=== PATIENT | male | born 1990 | race Asian ===

== ENCOUNTER 2016-02-28 22:09 | Emergency (ER) | payer OTHER ==
[2016-02-28] MEDS ORDERED: MECLIZINE 12.5 MG TABLET PO STA (23:07)
[2016-02-28] MEDS ORDERED: ONDANSETRON ODT 4 MG TABLET TL STA (23:08)
[2016-02-28] MEDS ORDERED: MECLIZINE 12.5 MG TABLET PO ONE (23:17)
[2016-02-28] MEDS ORDERED: ONDANSETRON ODT 4 MG TABLET ONE (23:17)
[2016-02-29] MEDS ORDERED: MECLIZINE 12.5 MG TABLET PO STA (00:33)
[2016-02-29] MEDS ORDERED: ONDANSETRON 4 MG/2 ML VIAL IVP STA (00:33)
[2016-02-29] MEDS ORDERED: SODIUM CHLORIDE 0.9% 1,000 ML IV STA (00:33)
[2016-02-29] MEDS ORDERED: ONDANSETRON 4 MG/2 ML VIAL ONE (00:53)
[2016-02-29] MEDS ORDERED: MECLIZINE 12.5 MG TABLET PO ONE (00:53)
== END 2016-02-29 03:23 | disposition home or self-care (01) ==
DX: R42 Dizziness and giddiness (principal)
CPT/HCPCS: 36415; 80053; 83690; 85025; 96374; 99283; 99284; A9270; Q0162